=== PATIENT | female | born 1965 | race African-American/Black ===

== ENCOUNTER 2025-09-26 14:25 | Inpatient (IN) | payer MEDICARE, MEDICAID ==
[~2025-09-26] VITALS: Ht 152.4 cm; Wt 49.9 kg
[2025-09-26 14:31] VITALS: O2SAT 97
[2025-09-26] MEDS: ACETAMINOPHEN 325MG TABLET PO ONE (16:49)
[2025-09-26] MEDS ORDERED: PNEUMOCOCCAL 20-VAL CONJ-DIP CRM 0.5ML IM ONE (22:45)
[2025-09-26 23:36] VITALS: BP 130/52; PULSE 96; RESP 18; TEMP 36.418
[2025-09-27] VITALS: BP 130/52; PULSE 96; RESP 18; TEMP 36.4; O2SAT 98
[2025-09-27] MEDS ORDERED: ACETAMINOPHEN 650MG/20.3ML UDC PO PRN (01:45)
[2025-09-27] MEDS ORDERED: DEXTROSE 50% WATER 50ML SYRINGE IV PRN (01:45)
[2025-09-27 04:00] VITALS: BP 169/79; PULSE 98; RESP 18; TEMP 36.4; O2SAT 100
[2025-09-27] MEDS ORDERED: METF-415 MT (04:26)
[2025-09-27] MEDS ORDERED: BENA40TA91 MT (04:29)
[2025-09-27 04:35] LABS: CREATININE 0.6 mg/dL (0.6-1.0); LDL CHOLESTEROL 61 mg/dL (5-100); TRIGLYCERIDE 77 mg/dL (0-150); UREA NITROGEN BLOOD 11 mg/dL (9-23)
[2025-09-27 04:54] LABS: BASOPHILS % 0.2 % (0.0-2.0); EOSINOPHILS % 0.8 % (0.0-5.0); HEMATOCRIT. 40.1 % (36.0-48.0); HEMOGLOBIN. 13.2 g/dL (12.0-16.0); LYMPHOCYTES % 24.8 % (20.0-50.0); MEAN PLATELET VOLUME 9.5 fl (7.4-10.4); MONOCYTES % 6.6 % (2.0-8.0); NEUTROPHILS % 67.6 % (40.0-76.0); PLATELET 319 x1000/uL (130-400); RED BLOOD CELL COUNT 4.58 mill/uL (4.2-5.4); RED CELL DISTRIBUTION WIDTH 13.1 % (11.6-14.6)
[2025-09-27 05:14] LABS: HEPATITIS C AB NON REACTIVE (Neg) (Negative)
[2025-09-27] MEDS: CLONIDINE 0.1MG TABLET PO PRN (05:21)
[2025-09-27] MEDS: BLOOD SUGAR DIAGNOSTIC STRIP TEST SCH (06:59)
[2025-09-27 08:00] VITALS: BP 118/62; PULSE 95; RESP 15; TEMP 36.4; O2SAT 100
[2025-09-27] MEDS: METFORMIN HCL 500MG TABLET PO SCH (09:00)
[2025-09-27] MEDS: LOSARTAN 50 MG TABLET PO SCH (09:01)
[2025-09-27] MEDS: INSULIN LISPRO 100 UNITS/ML SUBCUT SCH (09:09)
[2025-09-27 12:00] VITALS: BP 130/61; PULSE 91; RESP 20; TEMP 36.3; O2SAT 100
[2025-09-27] MEDS: INSULIN GLARGINE 100 UNITS/ML SUBCUT SCH (12:06)
[2025-09-27] MEDS ORDERED: VITA250012 PO (13:47)
[2025-09-27] MEDS ORDERED: ASPI-1497 PO (13:47)
[2025-09-27] MEDS ORDERED: FERR-71 MT (13:47)
[2025-09-27] MEDS ORDERED: MULT-1146 MT (13:47)
[2025-09-27] MEDS ORDERED: AMLO10TA80 MT (13:47)
[2025-09-27 16:00] VITALS: BP 171/88; PULSE 98; RESP 20; TEMP 36.3; O2SAT 100
[2025-09-27 20:00] VITALS: BP 171/78; PULSE 87; RESP 18; TEMP 36.4; O2SAT 99
[2025-09-27] MEDS: ENOXAPARIN 40MG/0.4ML SYR SUBCUT SCH (20:50)
[2025-09-28] VITALS: BP 121/58; PULSE 83; RESP 18; TEMP 36.4; O2SAT 96
[2025-09-28 04:00] VITALS: BP 100/41; PULSE 86; RESP 18; TEMP 36.4; O2SAT 96
[2025-09-28 08:00] VITALS: BP 141/65; PULSE 89; RESP 18; TEMP 36.4; O2SAT 100
[2025-09-28 08:19] LABS: CLARITY URINE CLEAR (CLEAR); COLOR URINE YELLOW (YELLOW)
[2025-09-28 08:20] LABS: GLUCOSE URINE NEGATIVE (NEGATIVE); KETONES URINE NEGATIVE (NEGATIVE); LEUKOCYTE ESTERASE URINE TRACE (NEGATIVE); NITRITE URINE NEGATIVE (NEGATIVE); OCCULT BLOOD URINE NEGATIVE (NEGATIVE); PH URINE 5.5 (4.5-8.0); PROTEIN URINE NEGATIVE (NEGATIVE); SPECIFIC GRAVITY URINE 1.007 (1.005-1.030); UROBILINOGEN URINE 0.2 E.U./dL (0.2-1.0)
[2025-09-28 08:39] LABS: SQUAMOUS EPITHELIAL CELL URINE FEW /lpf (RARE/1+)
[2025-09-28 08:41] LABS: BACTERIA URINE TRACE
[2025-09-28 08:42] LABS: RBC URINE NONE SEEN /hpf (0-2)
[2025-09-28] MEDS ORDERED: INSU100I28 SQ (10:53)
[2025-09-28 12:00] VITALS: BP 132/68; PULSE 92; RESP 17; TEMP 36.5; O2SAT 99
[2025-09-28 14:20] VITALS: BP 143/57; PULSE 95; RESP 16; TEMP 98.1
== END 2025-09-28 15:20 | disposition home or self-care (01) | DRG 552 ==
LOC: ER 14:25 → 8EST 20:58 → EDBEDREQTM 21:01 → EDBEDREQ 21:01 → ENRESERV 21:46
PROVIDERS: ADMIT Internal Medicine; ATTEND Internal Medicine
DX: M48.02 Spinal stenosis, cervical region (principal); E11.65 Type 2 diabetes mellitus with hyperglycemia; I10 Essential (primary) hypertension; M25.511 Pain in right shoulder; Z88.2 Allergy status to sulfonamides
CPT/HCPCS: 36415; 72141; 72170; 73030; 80048; 80061; 81003; 82962; 83036; 85025; 86705; 87340; 99285; J1650; J1815